=== PATIENT | female | born 1955 | race Caucasian/White ===

== ENCOUNTER 2024-02-08 05:57 | Day surgery (SDC) | payer MEDICARE ==
[2024-02-07 12:33] VITALS: BMI 18.3
[2024-02-08] MEDS ORDERED: EPINEPHrine 0.3 MG in Ophthalmic Irrigation Solution 500 ML IRR SCH (06:00)
[2024-02-08] MEDS ORDERED: PHENYLephrine 2.5% Ophth Soln 15 ml Bottle ONE (06:21)
[2024-02-08] MEDS ORDERED: Cyclopentolate 1% Opth Drop 2 ML BOT ONE (06:21)
[2024-02-08] MEDS ORDERED: PROPOFOL 20 ML ONE (06:45)
[2024-02-08] MEDS ORDERED: Midazolam HCl 2 mg/2 ml Vial ONE (06:46)
[2024-02-08] MEDS ORDERED: Lidocaine 1% PF 5 ML VIAL ONE (07:00)
[2024-02-08] MEDS ORDERED: Dexamethasone 4 mg/ml Vial ONE ×3 (07:00→07:57)
[2024-02-08] MEDS ORDERED: Maxitrol 0.1% Opth Oint 3.5 GM TUBE ONE (07:00)
[2024-02-08] MEDS ORDERED: CEFAZOLIN 1 GM VIAL ONE (07:00)
[2024-02-08] MEDS ORDERED: Lidocaine 4% PF 5 ML AMP ONE (07:00)
[2024-02-08] MEDS ORDERED: Bupivacaine 0.75% 10 ML VIAL ONE (07:00)
== END 2024-02-08 08:30 | disposition home or self-care (01) ==
LOC: SDC 05:57
PROVIDERS: ATTEND Ophthalmology Retina Specialist
PROC: 08T43ZZ Resection of Right Vitreous, Percutaneous Approach (ICD-10-PCS; principal; 2024-02-08)
DX: H43.311 Vitreous membranes and strands, right eye (principal)
CPT/HCPCS: 67041; J0171; J0690; J1100; J2250; J2704; J3490

== ENCOUNTER 2024-05-02 06:55 | Day surgery (SDC) | payer MEDICARE ==
[2024-05-01 11:04] VITALS: BMI 18.3
[~2024-05-02 06:55] MED LIST: EPINEPHrine 0.3 MG in Ophthalmic Irrigation Solution 500 ML IRR SCH
[2024-05-02] MEDS ORDERED: PHENYLephrine 2.5% Ophth Soln 15 ml Bottle ONE (07:58)
[2024-05-02] MEDS ORDERED: Cyclopentolate 1% Opth Drop 2 ML BOT ONE (07:58)
== END 2024-05-02 10:30 | disposition home or self-care (01) ==
LOC: SDC 06:55
PROVIDERS: ATTEND Ophthalmology Retina Specialist
PROC: 08T53ZZ Resection of Left Vitreous, Percutaneous Approach (ICD-10-PCS; principal; 2024-05-02)
DX: H43.312 Vitreous membranes and strands, left eye (principal)
CPT/HCPCS: 67041; J0171